=== PATIENT | female | born 1975 | race Caucasian/White ===

== ENCOUNTER 2018-04-06 12:52 | Outpatient (CLI) | payer BC ==
--- NOTE | 2018-04-06 16:01 | MMO ---
MAMMOGRAM DIGITAL SCREENING BILATERAL: DATE: 04/06/18 COMPARISON: None available. Unable to obtain prior mammograms from 2013 because the outside facility has closed d own. HISTORY: 42-year-old female for routine bilateral screening mammogram. TECHNIQUE: Digital mammographic views. Computer-aided detection (CAD) utilized. FINDINGS: The breasts are extremely dense, which lowers the sensitivity of mammography. There is no evidence of suspicious mass, suspicious calcifications, or architectural distortion. There is no significant int erval change since the prior mammogram. IMPRESSION: 1. BIRADS 1 - Negative. 2. Recommendation: routine bilateral annual screening mammogram (unless the patient develops suspici ous clinical findings that would warrant earlier imaging follow up). [email or web address] [] POS: [facility]
== END 2018-04-06 12:53 | disposition home or self-care (01) ==
LOC: SCSMAMMO 12:52
PROVIDERS: ATTEND Family Medicine
DX: Z12.31 Encounter for screening mammogram for malignant neoplasm of breast (principal)
CPT/HCPCS: 77067